=== PATIENT | male | born 1975 | race Caucasian/White ===

== ENCOUNTER 2020-09-22 06:34 | Outpatient (CLI) | payer BC ==
[2020-09-22 10:34] LABS: #Eosinphils 0.1 10x3/uL (0.0-0.5); #Monocytes 0.4 10x3/uL (0.0-1.1); #Neutrophils 1.5 10x3/uL (1.5-8.4); %Basophils 0.8 % (0.0-2.0); %Lymphocytes 39.9 % (18.0-47.0); %Monocytes 11.3 % (0.0-10.0); %Neutrophils 43.7 % (40.0-75.0); Hemoglobin 13.3 g/dL (14.0-18.0); Mean Corpuscular HGB CONC 33.8 G/DL (32.0-36.0); Mean Corpuscular Hemoglobin 29.5 PG (27.0-33.0); Mean Corpuscular Volume 87.1 fl (80.0-100.0); Mean Platelet Volume 9.6 fl (7.4-10.4); Platelet Count 186 10x3/uL (130-400); RBC Distribution Width 12.3 % (11.5-14.5); Red Blood Cell (RBC) Count 4.51 10x6/uL (4.40-5.80); White Blood Cell (WBC) Count 3.5 10x3/uL (4.5-11.0)
[2020-09-22 10:36] LABS: ALT (SGPT) 18 U/L (8-55); AST (SGOT) 29 U/L (5-34); Albumin 4.3 g/dL (3.5-5.0); Alkaline Phosphatase 168 U/L (40-110); Anion Gap 13 mmol/L (10-20); BUN (Urea Nitrogen) 12 mg/dL (8.9-20.6); Bilirubin, Total 0.8 mg/dL (0.2-1.2); Calc. Creatinine Clearance 0 mL/min (70-130); Carbon Dioxide 28 mmol/L (22-29); Chloride 102 mmol/L (98-107); Globulin 3.3 g/dL (2.4-3.5); Glucose 100 mg/dL (70-105); Phosphorus 4.2 mg/dL (2.3-4.7); Potassium 4.4 mmol/L (3.5-5.1); Protein, Total 7.6 g/dL (6.0-8.3); Sodium 139 mmol/L (136-145)
[2020-09-22 14:35] LABS: Hemoglobin A1c 4.8 % (4.0-6.0)
[2020-09-22 15:10] LABS: Gamma GT (GGT) 131 U/L (12-64)
[2020-09-22 19:01] LABS: SARS-CoV-2 MS2 Positive; SARS-CoV-2 N Gene Negative; SARS-CoV-2 S Gene Negative; SARS-CoV-2 by NAA Not Detected (NotDetected); SARS-CoV-2 orf1ab Negative
== END 2020-09-22 06:35 | disposition home or self-care (01) ==
LOC: LABBT 06:34
PROVIDERS: ATTEND Surgery
DX: Z01.812 Encounter for preprocedural laboratory examination (principal); K57.92 Diverticulitis of intestine, part unspecified, without perforation or abscess without bleeding; R79.89 Other specified abnormal findings of blood chemistry; R74.8 Abnormal levels of other serum enzymes; Z20.828 Contact with and (suspected) exposure to other viral communicable diseases
CPT/HCPCS: 82977; 83036; 83735; 83970; 84100; 85025; 87635; U0003

== ENCOUNTER 2020-09-27 05:56 | Inpatient (IN) | payer BC ==
[2020-09-26 08:48] VITALS: BMI 25.6
[2020-09-27] MEDS ORDERED: Midazolam HCl 2 mg/2 ml Vial ONE (06:32)
[2020-09-27] MEDS ORDERED: Fentanyl 100 MCG/2 ML VIAL ONE ×6 (06:32→18:45)
[2020-09-27] MEDS ORDERED: HYDROmorphone 0.5 MG/0.5 ML SYRINGE ONE (06:33)
[2020-09-27] MEDS ORDERED: SUGAMMADEX SODIUM 500 MG/5 ML VIAL ONE (06:34)
[2020-09-27] MEDS ORDERED: cefOXitin Sodium/Dextrose 2 GM/50 ML BAG ONE ×2 (06:53→09:51)
[2020-09-27] MEDS ORDERED: Bupivacaine 0.25% HCL 30 ML VIAL ONE (06:55)
[2020-09-27] MEDS ORDERED: Lidocaine 1% w/Epinephrine 1:100K 20 ML VIAL ONE (06:55)
[2020-09-27] MEDS ORDERED: Methylene Blue 50 MG/10 ML AMPUL ONE (08:31)
[2020-09-27] MEDS ORDERED: Albumin 5% 500 ML ONE (09:35)
[2020-09-27] MEDS ORDERED: Ondansetron PF 4 MG/2 ML Vial ONE (10:19)
[2020-09-27] MEDS ORDERED: Lidocaine 1% PF 5 ML VIAL ONE (10:19)
[2020-09-27] MEDS ORDERED: Rocuronium Bromide 10 MG/ML (10ML VIAL) ONE (10:19)
[2020-09-27] MEDS ORDERED: PROPOFOL 200 MG/20 ML VIAL ONE (10:19)
[2020-09-27] MEDS ORDERED: ePHEDrine 50 MG/ML VIAL ONE (10:19)
[2020-09-27] MEDS ORDERED: Ketorolac Tromethamine 30 MG/ML VIAL ONE (10:19)
[2020-09-27] MEDS ORDERED: PHENYLEPHRINE-NS 100 MCG/ML 10 ML SYRINGE ONE (10:19)
[2020-09-27] MEDS ORDERED: Bupivacaine HCl 0.5%/Epinephrine 1:200,000/PF 30 ml Vial ONE (10:19)
[2020-09-27] MEDS ORDERED: HYDROmorphone 2 MG/ML VIAL SLOW IVP PRN (10:33)
[2020-09-27] MEDS ORDERED: Ketorolac Tromethamine 30 MG/ML VIAL IVP PRN (10:33)
[2020-09-27] MEDS ORDERED: Ondansetron HCl/PF 4 MG/2 ML Vial IVP PRN (10:33)
[2020-09-27] MEDS ORDERED: Meperidine HCl/PF 25 MG/ML VIAL SLOW IVP PRN (10:33)
[2020-09-27] MEDS ORDERED: Promethazine HCl 25 MG/ML VIAL SLOW IVP PRN (10:33)
[2020-09-27] MEDS ORDERED: Promethazine HCl 25 MG/ML VIAL IM PRN ×2 (10:33→11:51)
[2020-09-27] MEDS ORDERED: hydrALAZINE 20 MG/ML VIAL SLOW IVP PRN (11:51)
[2020-09-27] MEDS ORDERED: Ondansetron PF 4 MG/2 ML Vial IVP PRN (11:51)
[2020-09-27] MEDS ORDERED: HYDROcodone/Acetaminophen 7.5/325 mg Tablet PO PRN (11:51)
[2020-09-27] MEDS: cefOXitin Sodium/Dextrose,Iso 2 GM in Premix Bag 1 BAG IVPB SCH ×2 (19:36→23:40)
[2020-09-27] MEDS: Famotidine 20 MG TAB PO SCH (20:46)
[2020-09-27] MEDS: HYDROcodone/Acetaminophen 7.5/325 mg Tablet PO PRN (20:46)
[2020-09-27] MEDS: D5 1/2 NS w/20 mEq KCL 1,000 ML IV SCH ×2 (20:47→23:43)
[2020-09-27] MEDS: Fentanyl 100 MCG/2 ML VIAL SLOW IVP PRN (23:38)
[2020-09-27] MEDS: Famotidine/PF 20 mg/2ml Vial SLOW IVP SCH (23:42)
[2020-09-28] MEDS: HYDROcodone/Acetaminophen 7.5/325 mg Tablet PO PRN ×4 (02:44→21:54)
[2020-09-28] MEDS: Fentanyl 100 MCG/2 ML VIAL SLOW IVP PRN ×6 (04:25→20:09)
[2020-09-28 06:26] LABS: #Lymphocytes 1.2 thou/uL (1.20-3.40); #Monocytes 1.1 thou/uL (0.11-0.59); #Neutrophils 4.9 thou/uL (1.40-6.50); %Basophils 0.1 % (0.0-1.0); %Eosinophils 0.5 % (0.0-10.0); %Lymphocytes 17.1 % (21.0-51.0); %Monocytes 14.8 % (0.0-10.0); %Neutrophils 67.5 % (42.0-75.0); Hemoglobin 10.5 g/dL (14.0-18.0); Mean Corpuscular Hemoglobin 30.6 pg (27.0-31.0); Mean Corpuscular Volume 90.1 fL (78.0-98.0); Mean Platelet Volume 7.7 fL (7.4-10.4); Platelet Count 156 thou/uL (130-400); RBC Distribution Width 11.2 % (11.5-14.5); Red Blood Cell (RBC) Count 3.43 mill/uL (4.70-6.10); White Blood Cell (WBC) Count 7.2 thou/uL (4.8-10.8)
[2020-09-28 06:39] LABS: Anion Gap 10 mmol/L (10-20); BUN (Urea Nitrogen) 7 mg/dL (8.9-20.6); Calc. Creatinine Clearance 160 mL/min (70-130); Calcium 8.7 mg/dL (7.8-10.44); Carbon Dioxide 27 mmol/L (22-29); Chloride 101 mmol/L (98-107); Glucose 132 mg/dL (70-105); Potassium 4.1 mmol/L (3.5-5.1); Sodium 134 mmol/L (136-145)
[2020-09-28] MEDS: D5 1/2 NS w/20 mEq KCL 1,000 ML IV SCH ×2 (06:51→07:19)
[2020-09-28] MEDS: Ibuprofen 800 MG TAB PO PRN (08:27)
[2020-09-28] MEDS: Famotidine 20 MG TAB PO SCH ×2 (08:28→20:10)
[2020-09-28] MEDS: Famotidine/PF 20 mg/2ml Vial SLOW IVP SCH ×2 (08:53→22:45)
[2020-09-28] MEDS: Enoxaparin Sodium 40 MG/0.4 ML SYRINGE SC SCH (08:57)
--- NOTE | 2020-09-28 09:30 | PDOC.GSPN ---
Surgery Progress Note: Subj - Subjective Patient reports: no new complaints, feels better, pain well controlled, tolerati ng liquids well Surgery Progress Note: Obj - Vital signs Vital signs: Vital Signs - Most Recent Temp Pulse Resp BP Pulse Ox 98.2 F 72 14 100/66 99 09/28/20 07:40 09/28/20 07:40 09/28/20 07:40 09/28/20 07:40 09/28/20 07:40 - Physical Exam General: no distress Cardiovascular: regular rate and rhythm, no murmur Respiratory: clear to auscultation, normal respiratory effort Abdomen: non tender, positive bowel sounds, distended (slightly distended, does endorse a mild feeling of bloating, but pain is well controlled with pain pills) Wound: dressing clean,dry,intact, healing well Surgery Progress Note: Results - Labs Result Diagrams: 09/28/20 05:22 09/28/20 05:22 Lab results: Laboratory Results - last 12 hr 09/28/20 09/28/20 05:22 05:22 WBC 7.2 RBC 3.43 L Hgb 10.5 L Hct 30.9 L MCV 90.1 MCH 30.6 MCHC 34.0 RDW 11.2 L Plt Count 156 MPV 7.7 Neutrophils % 67.5 Lymphocytes % 17.1 L Monocytes % 14.8 H Eosinophils % 0.5 Basophils % 0.1 Neutrophils # 4.9 Lymphocytes # 1.2 Monocytes # 1.1 H Eosinophils # 0.0 Basophils # 0.0 Sodium 134 L Potassium 4.1 Chloride 101 Carbon Dioxide 27 Anion Gap 10 BUN 7 L Creatinine 0.79 Estimated GFR (MDRD) Greater than 90 Glucose 132 H Calcium 8.7 Surgery Progress Note: A/P - Plan Plan: Fahad Baez is a 44 yo male POD 1 for a colostomy reversal. He is doing well overall. The only complaint he has is a mild bloating sensation. Otherwise, his pain is well controlled with pain medications. He is tolerating a liquid diet well. Last night he had vegetables, broth, and jello. Paz output at 1200 as of 0700. He is ambulating and on incentive spirometer. Bowel sounds are heard, but pt hasn't passed any gas or had any bowel movements yet. Plan: If paz output good, can remove advance diet if tolerating liquid diet continue to monitor vitals and labs continue encouraging incentive spirometer and ambulation Addendum - Physician - Physician Attestation Date/Time: 09/28/20 1619 I personally performed or re-performed the physical examination and medical decision making. I have verified all student documentation or findings, including history, physical exam and/or medical decision making. Doing well. Freeman clears. Continue to ambulate. Full liquids for dinner.
--- NOTE | 2020-09-28 10:10 | OP ---
DATE OF PROCEDURE: 09/27/2020 PREOPERATIVE DIAGNOSES: Colostomy dysfunction, history of diverticulitis. POSTOPERATIVE DIAGNOSES: Colostomy dysfunction, history of diverticulitis. PROCEDURES PERFORMED: 1. Colostomy takedown with colon resection and colorectal anastomosis. 2. Splenic flexure mobilization. ANESTHESIA: General. ESTIMATED BLOOD LOSS: Minimal. COMPLICATIONS: None. SPECIMEN: Colostomy segment. TECHNIQUE: The patient had undergone preop TAP blocks and was taken to the operating room and laid supine on the operating room table. After general anesthetic was obtained, a Mejia was placed. The abdomen was shaved, prepped, and draped in a sterile fashion. The ostomy device was removed, and the colostomy mucosa sewn shut. A midline incision was made and extended more superior. Cautery was dissected down into the abdominal cavity carefully without injury. All the posterior abdominal wall adhesions were taken down sharply. A Bookwalter retractor was able to be placed. Dissection was taken down into the pelvis. The rectal stump was able to be dissected out from surrounding tissues. The right and left ureters were found and excluded from the dissection. The end of the rectal stump was removed using the contour stapler. The colostomy was then ellipsed out from the skin and all adhesions taken down to bring it back into the abdominal cavity. The splenic flexure was mobilized in the usual fashion to allow for more length reaching down into the pelvis. The left colon blood vessels were taken proximally in order to facilitate this. A location on the proximal descending colon was found as a good location without ischemia for the anvil, a colotomy was made just distal to this. The anvil was passed proximally, its sharp pin brought out on the antimesenteric surface of the colon just distal to the stomach. The end of the colostomy segment was stapled off and removed. This proximal colon was able to brought down in the pelvis under no tension. The base of the 31 EEA was brought up through the anus on the posterior aspect of the rectal stump below, connected to the anvil from above, and the stapling was performed. The stapling was over the staple line, was oversewn using 3-0 silk sutures. There were a few bubbles on first insufflation test. 3-0 Vicryl was placed at the staple line, location of air as well as a few more serosal silk sutures. There was no ongoing leak. Then, there was no ongoing bleeding in the abdomen. All instrument counts, needle counts, and lap counts were correct. The posterior colostomy defect was closed using PDS. The anterior defect was closed using PDS. The midline fascia closed using running #1 PDS from the top and the bottom and tied in the middle. Subcutaneous tissues were irrigated copiously and the skin was closed using 3-0 Vicryl, 4-0 Monocryl, and Dermabond. The patient was en route to Recovery in stable condition. All instrument counts, needle counts, and lap counts are correct. Job ID: [id number]
[2020-09-28] MEDS ORDERED: ALPRAZolam 0.25 MG TAB PO PRN (14:18)
[2020-09-28] MEDS ORDERED: Albuterol Sulfate 2.5 mg/3 ml Neb NEB PRN (14:21)
[2020-09-29] MEDS: D5 1/2 NS w/20 mEq KCL 1,000 ML IV SCH (00:31)
[2020-09-29] MEDS: Fentanyl 100 MCG/2 ML VIAL SLOW IVP PRN ×8 (00:31→22:18)
[2020-09-29] MEDS: HYDROcodone/Acetaminophen 7.5/325 mg Tablet PO PRN ×3 (05:52→20:09)
--- NOTE | 2020-09-29 07:04 | PDOC.GSPN ---
Surgery Progress Note: Subj - Subjective Patient reports: pain well controlled, tolerating liquids well (Patient reports slight shoulder pain upon deep breathing.) Surgery Progress Note: Obj - Vital signs Vital signs: Vital Signs - Most Recent Temp Pulse Resp BP Pulse Ox 98.3 F 72 18 122/73 95 09/29/20 03:14 09/29/20 03:14 09/29/20 03:14 09/29/20 03:14 09/29/20 03:14 - Physical Exam General: no distress Cardiovascular: regular rate and rhythm, no murmur Respiratory: clear to auscultation, normal respiratory effort Abdomen: positive bowel sounds, appropriately tender (soreness and tender around incision site) Wound: healing well (Pt reports that they are going to change the dressing after taking tube out this morning.) Surgery Progress Note: Results - Labs Result Diagrams: 09/28/20 05:22 09/28/20 05:22 Surgery Progress Note: A/P - Plan Plan: Fahad Baez is a 44 yo male POD 2 for a colostomy reversal. Overall, pt is doing well. He does complain of mild shoulder pain upon deep breathing or when using the incentive spirometer. Bloating sensation from yesterday has gotten better. Pain controlled with pain meds. Pt is tolerating liquid diet and ambulating. Mejia output was taken out at 0600. Bowel sounds are heard but has not passed gas or had any bowel movements. Plan: Can advance to solid food diet if liquid diet well tolerated Continue encouraging ambulation and incentive spirometry Continue monitoring vitals Continue monitoring shoulder pain Addendum - Physician - Physician Attestation Date/Time: 09/29/20 7641 I personally performed or re-performed the physical examination and medical decision making. I have verified all student documentation or findings, including history, physical exam and/or medical decision making. Doing well. full liquids tolerated DC home tomorrow if doing well. Drain removed.
[2020-09-29] MEDS: Famotidine 20 MG TAB PO SCH ×2 (08:03→20:09)
[2020-09-29] MEDS: Losartan/Hydrochlorothiazide 100 mg/25 mg Tablet PO SCH ×2 (08:04→11:02)
[2020-09-29] MEDS: Famotidine/PF 20 mg/2ml Vial SLOW IVP SCH ×2 (08:04→20:43)
[2020-09-29] MEDS: Enoxaparin Sodium 40 MG/0.4 ML SYRINGE SC SCH (08:04)
[2020-09-29] MEDS: Ibuprofen 800 MG TAB PO PRN (08:11)
[2020-09-30] MEDS: HYDROcodone/Acetaminophen 7.5/325 mg Tablet PO PRN ×4 (01:44→20:41)
[2020-09-30] MEDS: Fentanyl 100 MCG/2 ML VIAL SLOW IVP PRN ×7 (04:07→23:37)
--- NOTE | 2020-09-30 07:40 | PDOC.GSPN ---
Surgery Progress Note: Subj - Subjective Patient reports: had a bowel movement, positive flatus, pain well controlled (Pt reports having cramping abdominal pain last night at around 1900. He states that it lasted for a couple hours and hurt to the point that "if I were to be sent home yesterday, I would have came back here." Currently, pt denies any pain except mild soreness around the incision sites.), tolerating liquids well Surgery Progress Note: Obj - Vital signs Vital signs: Vital Signs - Most Recent Temp Pulse Resp BP Pulse Ox 98.2 F 75 16 126/84 96 09/30/20 04:20 09/30/20 04:20 09/30/20 04:20 09/30/20 04:20 09/30/20 04:20 - Physical Exam General: moderate pain Cardiovascular: regular rate and rhythm, no murmur Respiratory: clear to auscultation, normal respiratory effort Abdomen: distended, tender Wound: dressing clean,dry,intact, healing well Surgery Progress Note: Results - Labs Result Diagrams: 09/28/20 05:22 09/28/20 05:22 Surgery Progress Note: A/P - Plan Plan: Fahad Baez is a 44 yo male POD 3 for a colostomy removal. Pt reports having cramping abdominal pain last night at 1900. He states that it lasted for a few hours and that it hurt bad enough that "if I were sent home yesterday, I would have come right back here." He states that the nurse came by yesterday to give him some pain meds, which helped. He endorses 1 episode of chills, which he attributes it to the AC, and 1 episode of feeling nauseated. Currently, the pain has subsided, and pt does not look in any acute distress. Pt states that he wants to stay another day just to make sure it does not happen again. Pt is ambulating and on incentive spirometry. Pt states that he has passed gas and had a bowel movement this morning. Pt denies fever and vomiting. POD 3: Freeman liquid diet Continue monitoring pain Encourage ambulation and incentive spirometer
[2020-09-30] MEDS: Famotidine 20 MG TAB PO SCH ×2 (08:14→20:40)
[2020-09-30] MEDS: Losartan/Hydrochlorothiazide 100 mg/25 mg Tablet PO SCH (08:14)
[2020-09-30] MEDS: Enoxaparin Sodium 40 MG/0.4 ML SYRINGE SC SCH (08:17)
[2020-09-30 09:52] LABS: #Eosinphils 0.2 thou/uL (0.0-0.7); #Monocytes 0.5 thou/uL (0.11-0.59); #Neutrophils 2.7 thou/uL (1.40-6.50); %Basophils 0.5 % (0.0-1.0); %Eosinophils 4.7 % (0.0-10.0); %Lymphocytes 21.6 % (21.0-51.0); %Monocytes 12.1 % (0.0-10.0); Hemoglobin 10.2 g/dL (14.0-18.0); Mean Corpuscular HGB CONC 34.6 g/dL (32.0-36.0); Mean Corpuscular Hemoglobin 30.6 pg (27.0-31.0); Mean Corpuscular Volume 88.3 fL (78.0-98.0); Mean Platelet Volume 7.1 fL (7.4-10.4); Platelet Count 171 thou/uL (130-400); RBC Distribution Width 11.1 % (11.5-14.5); Red Blood Cell (RBC) Count 3.34 mill/uL (4.70-6.10); White Blood Cell (WBC) Count 4.4 thou/uL (4.8-10.8)
--- NOTE | 2020-09-30 10:00 | PRG ---
DATE OF SERVICE: 09/30/2020 SUBJECTIVE: Mr. Baez was having fairly severe crampy abdominal pain yesterday, it is better today. He is passing gas at times. He has had a couple of small bowel movements. He is ambulatory. OBJECTIVE: VITAL SIGNS: He is afebrile. His pulse is 84, respirations 16, blood pressure is 135/80. Multiple voids without difficulty. He has had a few small bowel movements. CHEST: Clear. HEART: Regular rate. ABDOMEN: Soft, mild to moderately distended. He does have decreased bowel sounds. He is diffusely appropriately tender. The ostomy site has a dressing on it. ASSESSMENT: Postop day 3, colostomy reversal, fairly extensive lysis of adhesions. PLAN: This is probably expected postop ileus. We will keep on liquid diet as tolerated. I suspect more bowel function soon. Home once bowel function improves. Job ID: [id number]
[2020-09-30] MEDS: Famotidine/PF 20 mg/2ml Vial SLOW IVP SCH ×2 (12:39→20:47)
[2020-10-01] MEDS: HYDROcodone/Acetaminophen 7.5/325 mg Tablet PO PRN ×2 (02:48→09:04)
[2020-10-01] MEDS: Fentanyl 100 MCG/2 ML VIAL SLOW IVP PRN ×2 (05:51→10:26)
--- NOTE | 2020-10-01 07:28 | PDOC.GSPN ---
Surgery Progress Note: Subj - Subjective Patient reports: had a bowel movement, feels better, positive flatus, pain well controlled, tolerating liquids well Surgery Progress Note: Obj - Vital signs Vital signs: Vital Signs - Most Recent Temp Pulse Resp BP Pulse Ox 98.3 F 76 16 136/79 96 10/01/20 03:02 10/01/20 03:02 10/01/20 03:02 10/01/20 03:02 10/01/20 03:02 - Physical Exam General: no distress Cardiovascular: regular rate and rhythm, no murmur Respiratory: clear to auscultation, normal respiratory effort Abdomen: soft, positive bowel sounds, appropriately tender Wound: dressing clean,dry,intact, healing well Surgery Progress Note: Results - Labs Result Diagrams: 09/30/20 09:21 09/28/20 05:22 Surgery Progress Note: A/P - Plan Plan: Mr. Baez is a 44 yo male POD 4 for colostomy reversal. Overall, doing better. Pain is well controlled. Pt tolerating full liquid diet and ambulating. Has not had a bowel movement this morning but had one last night. Pt is urinating well. On incentive spirometry. Pt denies fever, chills, nausea, and vomiting. POD 4 Colostomy reversal: can advance diet if edgar full liquid home once bowel function is restored encourage ambulation
[2020-10-01] MEDS: Losartan/Hydrochlorothiazide 100 mg/25 mg Tablet PO SCH (09:03)
[2020-10-01] MEDS: Famotidine 20 MG TAB PO SCH (09:03)
[2020-10-01] MEDS: Famotidine/PF 20 mg/2ml Vial SLOW IVP SCH (09:03)
[2020-10-01] MEDS: Enoxaparin Sodium 40 MG/0.4 ML SYRINGE SC SCH (09:04)
[2020-10-01 11:41] VITALS: BP 131/81; TEMP 98.3
--- NOTE | 2020-10-04 05:19 | PQF ---
CLINICAL DOCUMENTATION CLARIFICATION FORM: Dear : Moris Goodman Date / Time: 10/04/2020517 Please exercise your independent, professional judgment in responding to the clarification form. Clinical indicators are provided on the bottom of this form for your review Please check appropriate box(es) to clarify if the following diagnosis has been ruled in our ruled out: Postop Ileus [ ] Ruled in diagnosis [ ] Continue to treat [ ] Resolved [ ] Ruled out diagnosis [ ] Improving [ ] Cannot rule out diagnosis [ ] Other diagnosis, please specify: [ ] Unable to determine Physician Signature: Date/Time: For continuity of documentation, please document condition throughout progress notes and discharge summary. Thank You. To be completed by CDI/Coding staff for physician review: Present Clinical Indicators - Signs / Symptoms / Labs Results and Location in Medical Record [X] BP 114/70, Pulse 89, Resp 20 Temp 98.4 Vital signs 09/27 [X] Bloating sensation PN p2 09/29 Dr Goodman [X] Bowel sounds are heard but has not passed gas or had any bowel movements PN p2 09/29 Dr Goodman [X] Severe crampy abdominal pain yesterday. This probably expected postop ileus PN p1 09/30 Dr Goodman [X] Abdomen: mild to moderate distended. He does have decreased bowel sounds PN 12 Present Risk Factors Results and Location in Medical Record [X] Colostomy dysfunction Operative report p1 09/27 Dr Goodman [X] Hx of Diverticulitis Operative report p1 09/27 Dr Goodman [X] s/p Colostomy takedown Operative report p1 09/27 Dr Goodman [X] Lysis of adhesion Operative report p1 09/27 Dr Goodman Present Treatments Results and Location in Medical Record [X] IV Pepcid 20 mg MAR 09/27 [X] IV Zofran 4 mg MAR 09/27 [X] Liquid diet PN p2 09/29 Dr Goodman CDS/Substation Operator Chief Signature: Dimple Clementewaldo Phone #: [phone] Date/Time: 10/04/2020517 This is a permanent part of the Medical Record [facility]
== END 2020-10-01 11:40 | disposition home or self-care (01) | DRG 331 ==
LOC: SDC 05:56 → SURG A 10:40 → SDC 11:51
PROVIDERS: ADMIT Surgery; ATTEND Surgery
PROC: 0DBE0ZZ Excision of Large Intestine, Open Approach (ICD-10-PCS; principal; 2020-09-27)
DX: K94.03 Colostomy malfunction (principal); Z20.828 Contact with and (suspected) exposure to other viral communicable diseases; I10 Essential (primary) hypertension; J45.909 Unspecified asthma, uncomplicated; Z87.19 Personal history of other diseases of the digestive system; Z90.49 Acquired absence of other specified parts of digestive tract; Z79.82 Long term (current) use of aspirin; Z79.890 Hormone replacement therapy; Z85.828 Personal history of other malignant neoplasm of skin; Y83.3 Surgical operation with formation of external stoma as the cause of abnormal reaction of the patient, or of later complication, without mention of misadventure at the time of the procedure
CPT/HCPCS: 36415; 36416; 80048; 85025; 88304; J0690; J0694; J1170; J1650; J1885; J2250; J2405; J2704; J3010; J3480; J3490; P9045; Q9968; S0020